=== PATIENT | male | born 1950 | race Caucasian/White ===

== ENCOUNTER 2024-08-02 06:23 | Day surgery (SDC) | payer OTHER, SELFPAY ==
[2024-08-02 07:43] LABS: Glucose - Point of Care 144 mg/dl (70-99)
== END 2024-08-02 10:02 | disposition home or self-care (01) ==
LOC: GI 06:23
PROVIDERS: ATTENDING PHYSICIAN Internal Medicine
DX: Z12.11 Encounter for screening for malignant neoplasm of colon (principal); K57.30 Diverticulosis of large intestine without perforation or abscess without bleeding; K64.9 Unspecified hemorrhoids; D12.2 Benign neoplasm of ascending colon; K62.1 Rectal polyp; D12.1 Benign neoplasm of appendix; Z86.0101 Personal history of adenomatous and serrated colon polyps
CPT/HCPCS: 45390; 45385; 88305; 82962

== ENCOUNTER → 2024-08-22 13:20 | Outpatient (REF) | payer OTHER, SELFPAY ==
[2024-08-22 13:35] VITALS: BP 159/96; BP_SYST 76
[2024-08-22 14:20] VITALS: BP 131/81; BP_SYST 68
[2024-08-22 14:27] VITALS: BP 131/81
== END ==
LOC: RADI 13:20
PROVIDERS: ATTENDING PHYSICIAN Nurse Practitioner Acute Care
DX: Z45.2 Encounter for adjustment and management of vascular access device (principal); C85.90 Non-Hodgkin lymphoma, unspecified, unspecified site
CPT/HCPCS: 36590; 77001